=== PATIENT | male | born 1945 | race Caucasian/White ===

== ENCOUNTER 2016-11-22 10:39 | Day surgery (SDC) | payer MEDICARE, BC ==
[~2016-11-22 10:39] MED LIST: Lactated Ringers 1,000 ML IV SCH; Sodium Chloride 0.9% 10 ML Syringe FLUSH PRN
[2016-11-22] MEDS ORDERED: Propofol 200 MG/20 ML SDV ONE ×3 (11:15→12:00)
[2016-11-22] MEDS ORDERED: Midazolam 1 MG/ML 2 ML SDV ONE ×2 (11:15→11:27)
--- NOTE | 2016-11-22 11:56 | PCM.OPNOTE ---
- General Post-Op/Procedure Note Date of Surgery/Procedure: 11/22/16 Operative Procedure(s): Colonoscopy Findings: tics Pre Op Diagnosis: Screening Post-Op Diagnosis: Tics Anesthesia Technique: MAC Primary Surgeon: Delon Foster Anesthesia Provider: Marcy Argueta Complications: None Condition: Good Free Text/Narrative:: Intake & Output 11/21/16 11/22/16 11/22/16 22:59 06:59 14:59 Intake Total 500 Balance 500
[2016-11-22 15:08] VITALS: BP 125/76
--- NOTE | 2016-11-22 16:02 | OR ---
Date of Procedure: 11/22/2016 PREOPERATIVE DIAGNOSIS: Colon screening. POSTOPERATIVE DIAGNOSIS: Sigmoid diverticulosis. PROCEDURE: Colonoscopy. ANESTHESIA: IV sedation. PROCEDURE IN DETAIL: Patient was brought to the procedure room, where he was placed on his left side and IV sedation administered. Digital rectal exam was performed, which was normal. Colonoscope was inserted and advanced to the level of the cecum with some difficulty getting through a tortuous ascending colon, requiring pressure on the abdomen. I was able to reach the cecum, which was confirmed by identifying the appendiceal lumen and ileocecal valve. Prep was good and surfaces were well visualized. Upon withdrawing the scope, the ascending, transverse, and descending colon were normal in appearance. Sigmoid colon had several medium-sized diverticula present. No polyps were seen. Rectum was normal and retroflexion was normal. Air was removed and the scope withdrawn. Patient tolerated the procedure well and returned to recovery in stable condition. I do not feel the patient needs another colon screening since he will be 80 years old in 10 years. SATHYA LEÓN MD /[id number]
== END 2016-11-22 13:20 | disposition home or self-care (01) ==
LOC: LL.SDS 10:39
PROVIDERS: ATTEND Surgery
DX: Z12.11 Encounter for screening for malignant neoplasm of colon (principal); K57.30 Diverticulosis of large intestine without perforation or abscess without bleeding; G47.30 Sleep apnea, unspecified; Z99.89 Dependence on other enabling machines and devices
CPT/HCPCS: G0121; J2250; J2704; J7120; 00810-QZ

== ENCOUNTER 2018-06-13 13:50 | Emergency (ER) | payer MEDICARE, BC ==
[2018-06-13 14:54] VITALS: BP 146/80
--- NOTE | 2018-06-13 14:57 | EDM.PDOC ---
ED HPI GENERAL MEDICAL PROBLEM - General Chief Complaint: Laceration Stated Complaint: laceration Time Seen by Provider: 06/13/18 13:50 Source of Information: Reports: Patient History Limitations: Reports: No Limitations - History of Present Illness INITIAL COMMENTS - FREE TEXT/NARRATIVE: Patient is a 72-year-old who is seen in the ER secondary to laceration of left index finger patient states that he will 40 in the shop and was cutting with the tablesaw when he got his index finger caught at this time he applied heavy dressing and went to the clinic patient was referred to us for repair Onset: Today Duration: Hour(s): (One hour) Location: Reports: Upper Extremity, Left Quality: Reports: Ache Severity: Mild Improves with: Reports: Other (Pressure dressed) Worsens with: Reports: Movement Context: Reports: Trauma Associated Symptoms: Reports: No Other Symptoms - Related Data Allergies Allergy/AdvReac Type Severity Reaction Status Date / Time codeine Allergy Severe Nausea and Verified 06/13/18 13:52 Vomiting, severe headaches Home Meds: Home Meds Rosuvastatin Calcium 20 mg PO BEDTIME 11/22/16 [History] Past Medical History HEENT History: Reports: Impaired Vision Other HEENT History: Wears glasses. Has dental implants. Seasonal Allergies Cardiovascular History: Reports: Heart Murmur Respiratory History: Reports: Sleep Apnea Gastrointestinal History: Reports: None Genitourinary History: Reports: None Musculoskeletal History: Reports: Neck Pain, Chronic, Other (See Below) Other Musculoskeletal History: Recent left arm paresthesias with associated neck pain Neurological History: Reports: Other (See Below) Other Neuro History: Left sciatica Psychiatric History: Reports: None Endocrine/Metabolic History: Reports: Obesity/BMI 30+ Hematologic History: Reports: None Immunologic History: Reports: None Oncologic (Cancer) History: Reports: None Dermatologic History: Reports: None Social & Family History - Tobacco Use Smoking Status *Q: Former Smoker Used Tobacco, but Quit: Yes Month/Year Tobacco Last Used: Quit many years ago - Caffeine Use Caffeine Use: Reports: Coffee - Alcohol Use Days Per Week of Alcohol Use: 7 Number of Drinks Per Day: 1 Total Drinks Per Week: 7 - Recreational Drug Use Recreational Drug Use: No ED ROS GENERAL - Review of Systems Review Of Systems: See Below Constitutional: Reports: No Symptoms HEENT: Reports: No Symptoms Respiratory: Reports: No Symptoms Cardiovascular: Reports: No Symptoms Endocrine: Reports: No Symptoms GI/Abdominal: Reports: No Symptoms : Reports: No Symptoms Musculoskeletal: Reports: No Symptoms Skin: Reports: Other (Laceration over distant phalanx second finger) Neurological: Reports: No Symptoms Psychiatric: Reports: No Symptoms Hematologic/Lymphatic: Reports: No Symptoms Immunologic: Reports: No Symptoms ED EXAM, SKIN/RASH Exam: See Below Exam Limited By: No Limitations General Appearance: Alert, WD/WN, No Apparent Distress Ears: Normal External Exam, Normal Canal, Hearing Grossly Normal, Normal TMs Nose: Normal Inspection, Normal Mucosa, No Blood Throat/Mouth: Normal Inspection, Normal Lips, Normal Teeth, Normal Gums, Normal Oropharynx, Normal Voice, No Airway Compromise Head: Atraumatic, Normocephalic Neck: Normal Inspection, Supple, Non-Tender, Full Range of Motion Respiratory/Chest: No Respiratory Distress, Lungs Clear, Normal Breath Sounds, No Accessory Muscle Use, Chest Non-Tender Cardiovascular: Normal Peripheral Pulses, Regular Rate, Rhythm, No Edema, No Gallop, No JVD, No Murmur, No Rub GI/Abdominal: Normal Bowel Sounds, Soft, Non-Tender, No Organomegaly, No Distention, No Abnormal Bruit, No Mass Back Exam: Normal Inspection, Full Range of Motion, NT Extremities: Other (Laceration left second distal phalanx 1 cm) Neurological: Alert, Oriented, CN II-XII Intact, Normal Cognition, Normal Gait, Normal Reflexes, No Motor/Sensory Deficits Psychiatric: Normal Affect, Normal Mood Skin: Wound/Incision Location, Skin: Upper Extremity, Left Lymphatic: No Adenopathy ED SKIN PROCEDURES - Laceration/Wound Repair Digit - 2nd (Index) Appearance: Superficial, Clean Distal NVT: Neuro & Vascular Intact Anesthetic Type: Local Local Anesthesia - Lidocaine (Xylocaine): 1% Plain Local Anesthetic Volume: 5cc Skin Prep: Chlorhexidine (Hibiciens), Providone-Iodine (Betadine) Saline Irrigation (cc's): 100 Exploration/Debridement/Repair: In a Bloodless Field Closed with: Sutures Suture Size: 4-0 Course - Vital Signs Last Recorded V/S: Last Vital Signs Temp 97.1 F 06/13/18 14:00 Pulse 66 06/13/18 14:00 Resp 20 06/13/18 14:00 BP 146/80 H 06/13/18 14:00 Pulse Ox 98 06/13/18 14:00 - Orders/Labs/Meds Orders: Active Orders 24 hr Category Date Time Status Fingers Second Digit Lt F1 [CR] Stat Exams 06/13/18 13:58 Taken Meds: Medications Discontinued Medications Generic Name Dose Route Start Last Admin Trade Name Eloy PRN Reason Stop Dose Admin Lidocaine HCl 5 ml 06/13/18 14:00 06/13/18 14:15 Xylocaine-Mpf 1% INJECT 06/13/18 14:01 5 ml ONETIME ONE Administration Departure - Departure Time of Disposition: 14:58 Disposition: Home, Self-Care 01 Condition: Fair Clinical Impression: Broken skin - Discharge Information *PRESCRIPTION DRUG MONITORING PROGRAM REVIEWED*: No *COPY OF PRESCRIPTION DRUG MONITORING REPORT IN PATIENT RONAL: No Referrals: Vadim Begum [facility] [Primary Care Provider] - Care Plan Goals: Patient sent home on Augmentin 875 twice a day for 10 days return to the clinic or to the ER if signs of infection keep it laceration clean and dry - My Orders Last 24 Hours: My Active Orders 06/13/18 13:58 Fingers Second Digit Lt F1 [CR] Stat - Assessment/Plan Last 24 Hours: My Active Orders 06/13/18 13:58 Fingers Second Digit Lt F1 [CR] Stat
== END 2018-06-13 15:20 | disposition home or self-care (01) ==
LOC: LL.ED 13:50
DX: S61.211A Laceration without foreign body of left index finger without damage to nail, initial encounter (principal); Z87.891 Personal history of nicotine dependence; Z88.5 Allergy status to narcotic agent; W31.2XXA Contact with powered woodworking and forming machines, initial encounter
CPT/HCPCS: 12001; 73140; 99283; J2001

== ENCOUNTER 2023-08-02 20:49 | Emergency (ER) | payer BC, MEDICARE ==
[2023-08-02 21:10] LABS: BASOPHILS ABSOLUTE AUTO 0.03 K/uL (0.00-0.20); BASOPHILS PERCENT AUTO 0.5 % (0.0-2.0); EOSINOPHILS ABSOLUTE AUTO 0.32 K/uL (0.00-0.50); EOSINOPHILS PERCENT AUTO 5.2 % (0.0-5.0); HEMATOCRIT 44.6 % (39.0-49.0); LYMPHOCYTES ABSOLUTE AUTO 1.25 K/uL (0.50-3.50); LYMPHOCYTES PERCENT AUTO 20.2 % (10.0-50.0); MEAN CORPUSCULAR HEMOGLOBIN 30.7 pg (28.2-33.3); MEAN CORPUSCULAR HGB CONC 33.6 g/dL (31.7-36.0); MEAN CORPUSCULAR VOLUME 91.2 fL (84.0-98.0); MONOCYTES ABSOLUTE AUTO 0.77 K/uL (0.00-1.00); MONOCYTES PERCENT AUTO 12.4 % (2.0-14.0); NEUTROPHILS ABSOLUTE AUTO 3.83 K/uL (1.40-7.00); NEUTROPHILS PERCENT AUTO 61.7 % (45.0-80.0); PLATELET COUNT,PLT 222 K/uL (150-350); RED BLOOD CELL COUNT 4.89 M/uL (4.33-5.41); RED CELL DISTRIBUTION WIDTH 13.2 % (11.2-14.1); WHITE BLOOD CELL COUNT,WBC 6.2 K/uL (4.0-10.2)
[2023-08-02] MEDS: Lidocaine 2% with EPINEPHrine 1:100,000 20 ML MDV INJECT ONE (21:20)
[2023-08-02] MEDS: Diphtheria,Pertussis(Acell),Tetanus Vaccine 0.5 ML Syringe IM ONE (21:21)
[2023-08-02 21:23] LABS: ANION GAP 8.5 meq/L (7-15); CALCIUM 8.7 mg/dL (8.5-10.1); CARBON DIOXIDE,CO2 26.5 mmol/L (21.0-32.0); CREATININE 0.85 mg/dL (0.51-1.17); EST CRCL DRUG DOSING (CG) 77.51 mL/min; POTASSIUM,K 3.8 mmol/L (3.5-5.1)
[2023-08-02 22:17] VITALS: BP 172/96; PULSE 75
[2023-08-02] MEDS: Take Home: Cephalexin 500 MG Cap, 6 Cap Pack PO ONE (22:28)
== END 2023-08-02 22:35 | disposition home or self-care (01) ==
LOC: LL.ED 20:49
DX: S71.112A Laceration without foreign body, left thigh, initial encounter (principal); Z23 Encounter for immunization; E66.9 Obesity, unspecified; Z88.0 Allergy status to penicillin; Z88.8 Allergy status to other drugs, medicaments and biological substances; Z87.891 Personal history of nicotine dependence; Z68.33 Body mass index [BMI] 33.0-33.9, adult; W29.0XXA Contact with powered kitchen appliance, initial encounter
CPT/HCPCS: 12004; 36415; 80048; 85025; 90471; 90715; 99283-25; A9270-GY; J3490